=== PATIENT | female | born 1980 | race Caucasian/White ===

== ENCOUNTER 2019-11-05 17:52 | Emergency (ER) | payer OTHER ==
[~2019-11-05] VITALS: Ht 165.1 cm; Wt 64.0 kg
[2019-11-05 18:02] VITALS: BP 145/100; Ht 165.1 cm; Wt 64.0 kg
== END 2019-11-05 18:34 | disposition home or self-care (01) ==
LOC: ED 17:52
DX: F41.9 Anxiety disorder, unspecified (principal); Z76.0 Encounter for issue of repeat prescription